=== PATIENT | male | born 1950 | race Caucasian/White ===

== ENCOUNTER 2021-01-07 14:47 | Emergency (ER) | payer OTHER, MEDICARE ==
[~2021-01-07] VITALS: Ht 172.7 cm; Wt 107.4 kg
[~2021-01-07 14:47] MED LIST: ALOG25TA PO; AMOX1TAB15 PO; DOCU250C96 PO; ERGO400C PO; FLUT100D2 INH; GABA600T13 PO; HYDR-4353 PO; INSU100C4 SQ; INSU100V12 SQ; IPRA3AMP9 NEB; LISI20TA28 PO; LOSA25TA96 PO; METF500T PO; METO50TA17 PO; ROSU5TAB PO; TERA2CAP4 PO; TIZA-189 PO; ZOLP10TA PO
[2021-01-07] MEDS ORDERED: potassium Cl 20 mEq SR tablet PO STA (15:53)
[2021-01-07] MEDS ORDERED: potassium Cl 20 mEq/100mL bag IV ONE (15:55)
[2021-01-07] MEDS: potassium Cl 10 mEq/100mL bag IV SCH ×2 (16:20→17:12)
[2021-01-07 16:22] LABS: BASOPHILS # (AUTO) 0.1 X10'3 (0-0.2); BASOPHILS % (AUTO) 0.8 % (0-1); EOSINOPHILS # (AUTO) 0.1 X10'3 (0-0.9); EOSINOPHILS % (AUTO) 1.2 % (0-6); HEMATOCRIT 34.6 % (42.0-52.0); HEMOGLOBIN 11.3 g/dl (14.0-17.9); LYMPHOCYTES # (AUTO) 1.1 X10'3 (1.1-4.8); LYMPHOCYTES % (AUTO) 9.8 % (21-51); MEAN CORPUSCULAR HEMOGLOBIN 30.4 PG (27.0-31.0); MEAN CORPUSCULAR HGB CONC 32.7 g/dL (33.0-36.5); MEAN CORPUSCULAR VOLUME 93.1 FL (78-98); MONOCYTES # (AUTO) 1.1 X10'3 (0-0.9); MONOCYTES % (AUTO) 9.4 % (2-12); NEUTROPHILS % (AUTO) 78.8 % (42-75); PLATELET COUNT 390 X10'3 (140-440); RED BLOOD COUNT 3.71 X10'6 (4.70-6.10); RED CELL DISTRIBUTION WIDTH 14.7 % (11.5-14.5); WHITE BLOOD COUNT 11.5 X10'3 (4.5-11.0)
[2021-01-07] MEDS ORDERED: POTA10TA36 PO (16:34)
[2021-01-07 16:36] LABS: ALANINE AMINOTRANSFERASE 15 U/L (12-78); ALBUMIN 2.8 G/DL (3.4-5.0); ALBUMIN/GLOBULIN RATIO 0.6 (1.1-1.5); ALKALINE PHOSPHATASE 59 IU/L (46-116); ANION GAP 12 (8-16); ASPARTATE AMINO TRANSFERASE 15 U/L (10-37); BILIRUBIN,TOTAL 0.3 MG/DL (0.1-1.0); BLOOD UREA NITROGEN 24 MG/DL (7-18); BUN/CREATININE RATIO 14.2 (5.4-32.0); CALCIUM 8.4 MG/DL (8.5-10.1); CHLORIDE 99 MMOL/L (99-107); CREATININE 1.69 MG/DL (0.60-1.10); GLUCOSE 236 MG/DL (70-104); SODIUM 142 MMOL/L (135-145); TOTAL CARBON DIOXIDE 31.3 MMOL/L (24-32); TOTAL PROTEIN 7.2 G/DL (6.4-8.2); eGFR 40 ML/MIN
[2021-01-07 16:50] LABS: POTASSIUM 2.6 MMOL/L (3.5-5.1)
[2021-01-07 18:07] LABS: ANION GAP 9 (8-16); BLOOD UREA NITROGEN 25 MG/DL (7-18); BUN/CREATININE RATIO 14.4 (5.4-32.0); CALCIUM 8.7 MG/DL (8.5-10.1); CHLORIDE 100 MMOL/L (99-107); CREATININE 1.74 MG/DL (0.60-1.10); GLUCOSE 259 MG/DL (70-104); SODIUM 142 MMOL/L (135-145); TOTAL CARBON DIOXIDE 33.2 MMOL/L (24-32); eGFR 39 ML/MIN
[2021-01-07 18:11] LABS: POTASSIUM 2.9 MMOL/L (3.5-5.1)
[2021-01-07 19:13] VITALS: BP 180/90
== END 2021-01-07 19:15 | disposition home or self-care (01) ==
LOC: ER 14:48
DX: E87.6 Hypokalemia (principal); E78.00 Pure hypercholesterolemia, unspecified; I10 Essential (primary) hypertension; I25.2 Old myocardial infarction; E11.9 Type 2 diabetes mellitus without complications; Z86.73 Personal history of transient ischemic attack (TIA), and cerebral infarction without residual deficits; Z85.46 Personal history of malignant neoplasm of prostate; Z98.890 Other specified postprocedural states; Z79.2 Long term (current) use of antibiotics; Z79.4 Long term (current) use of insulin; Z79.899 Other long term (current) drug therapy
CPT/HCPCS: 36415; 80048; 80053; 85025; 93005; 96365; 96366; 99284; J3480

== ENCOUNTER 2021-02-13 13:29 | Emergency (ER) | payer OTHER, MEDICARE ==
[~2021-02-13] VITALS: Ht 172.7 cm; Wt 111.4 kg
[~2021-02-13 13:29] MED LIST changes: +POTA10TA36 PO
[2021-02-13] MEDS ORDERED: ipratropium/albuterol 3ml nebule NEB ONE (14:35)
[2021-02-13] MEDS ORDERED: LORazepam 1 MG tablet PO ONE (14:35)
--- NOTE | 2021-02-13 14:44 | NUR ---
RT at bedside. breathing treatment in progress
--- NOTE | 2021-02-13 14:45 | NUR ---
Md Haas at bedside
[2021-02-13 14:54] LABS: BASOPHILS # (AUTO) 0.1 X10'3 (0-0.2); BASOPHILS % (AUTO) 0.5 % (0-1); EOSINOPHILS # (AUTO) 0.5 X10'3 (0-0.9); EOSINOPHILS % (AUTO) 3.8 % (0-6); HEMATOCRIT 36.9 % (42.0-52.0); HEMOGLOBIN 12.3 g/dl (14.0-17.9); LYMPHOCYTES # (AUTO) 1.7 X10'3 (1.1-4.8); LYMPHOCYTES % (AUTO) 12.8 % (21-51); MEAN CORPUSCULAR HEMOGLOBIN 31.1 PG (27.0-31.0); MEAN CORPUSCULAR HGB CONC 33.3 g/dL (33.0-36.5); MEAN CORPUSCULAR VOLUME 93.5 FL (78-98); MEAN PLATELET VOLUME 9.7 FL (7.4-10.4); MONOCYTES # (AUTO) 1.1 X10'3 (0-0.9); MONOCYTES % (AUTO) 8.8 % (2-12); NEUTROPHILS # (AUTO) 9.6 X10'3 (1.8-7.7); NEUTROPHILS % (AUTO) 74.1 % (42-75); PLATELET COUNT 333 X10'3 (140-440); RED BLOOD COUNT 3.94 X10'6 (4.70-6.10)
[2021-02-13 15:11] LABS: ALANINE AMINOTRANSFERASE 22 U/L (12-78); ALBUMIN 3.3 G/DL (3.4-5.0); ALBUMIN/GLOBULIN RATIO 0.7 (1.1-1.5); ALKALINE PHOSPHATASE 70 IU/L (46-116); ANION GAP 5 (8-16); ASPARTATE AMINO TRANSFERASE 15 U/L (10-37); BILIRUBIN,TOTAL 0.4 MG/DL (0.1-1.0); BLOOD UREA NITROGEN 21 MG/DL (7-18); BUN/CREATININE RATIO 18.6 (5.4-32.0); CALCIUM 9.7 MG/DL (8.5-10.1); CHLORIDE 100 MMOL/L (99-107); CREATININE 1.13 MG/DL (0.60-1.10); GLUCOSE 275 MG/DL (70-104); POTASSIUM 3.6 MMOL/L (3.5-5.1); SODIUM 137 MMOL/L (135-145); TOTAL CARBON DIOXIDE 31.6 MMOL/L (24-32); TOTAL PROTEIN 7.9 G/DL (6.4-8.2); eGFR 64 ML/MIN
[2021-02-13 16:44] VITALS: BP 131/82
[2021-02-13 16:58] LABS: CLARITY,URINE CLOUDY (Clear); COLOR,URINE YELLOW (Yellow); GLUCOSE, URINE 500 mg/dl (Neg); KETONES,URINE NEGATIVE (Neg); LEUKOCYTE ESTERASE ,URINE NEGATIVE (Neg); NITRITES, URINE NEGATIVE (Neg); OCCULT BLOOD,URINE TRACE-INTACT (Neg); PROTEIN,URINE 100 mg/dl (Neg)
[2021-02-13 17:03] LABS: UA COLLECTION TYPE VOIDED
[2021-02-13 17:27] LABS: BACTERIA,URINE FEW /HPF (Neg); MUCUS STRANDS FEW /LPF (Neg); RBC,URINE 0-2 /HPF (0-2); SQUAMOUS EPITHELIAL CELL,UR FEW /LPF (FEW); WBC,URINE 0-4 /HPF (0-4)
[2021-02-13 17:30] LABS: YEAST FEW /HPF (NEGATIVE)
--- NOTE | 2021-02-13 18:09 | NUR ---
LEAH Haas at bedside. Explaining to pt and plan of care as discharge.
[2021-02-13] MEDS ORDERED: DOXY100C2 PO (18:18)
== END 2021-02-13 18:22 | disposition home or self-care (01) ==
LOC: ER 13:29
DX: C61 Malignant neoplasm of prostate (principal); R41.0 Disorientation, unspecified; E78.00 Pure hypercholesterolemia, unspecified; I10 Essential (primary) hypertension; E11.9 Type 2 diabetes mellitus without complications; I25.2 Old myocardial infarction; Z86.73 Personal history of transient ischemic attack (TIA), and cerebral infarction without residual deficits; Z79.4 Long term (current) use of insulin; Z79.899 Other long term (current) drug therapy
CPT/HCPCS: 36415; 70450; 71045; 80053; 81001; 83880; 84484; 85025; 87077; 87088; 87186; 93005; 94640; 94760; 99285